=== PATIENT | male | born 1965 | race Caucasian/White ===

== ENCOUNTER 2017-11-04 11:51 | Inpatient (IN) ==
--- NOTE | 2017-11-04 13:03 | Emergency Department Note ---
Disposition Clinical Impression: Right leg swelling Cellulitis Qualifiers: Site of cellulitis: extremity Site of cellulitis of extremity: lower extremity Laterality: right Qualified Code(s): L03.115 - Cellulitis of right lower limb Disposition: Admitted As Inpatient Condition: Good Time of Disposition: 15:05 General Adult HPI - General Chief complaint: ED Extremity Problem,Nontraumatic Stated complaint: RLE problem Time Seen by Provider: 11/04/17 12:03 Source: patient Mode of arrival: ambulatory Limitations: other Nursing Notes Reviewed: Yes Vital Signs Reviewed: Yes - History of Present Illness HPI Narrative: Patient is a 52-year-old male that presents the emergency department for redness and swelling of the right lower extremity. Patient states that he was seen here in the emergency department on 10/25/17 for cellulitis and was given a antibiotic course of Keflex. Patient states that he finished this antibiotics approximately 2 days ago. He states that the redness and swelling had basically resolved. He states that today he noticed that his leg was swelling and red again. He also states that he noticed his right knee to be swollen. Patient denies any pain in his leg or knee. Patient states that he has had no difficulty with moving his leg. 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 Pain Scale: 0 - Related Data Home Medications Medication Instructions Recorded Confirmed Acetaminophen [Tylenol] 500 mg PO Q6HR PRN 02/03/15 11/04/17 Albuterol Sulfate [Proair HFA] 1 - 2 puff IH Q4H PRN 02/03/15 11/04/17 Docusate [Colace] 100 mg PO BID 02/03/15 11/04/17 Lisinopril [Zestril] 20 mg PO DAILY 02/03/15 11/04/17 Omeprazole [PriLOSEC] 40 mg PO DAILY 02/03/15 11/04/17 Wheat Dextrin [Benefiber] 1 packet PO DAILY 02/03/15 11/04/17 Diltiazem HCl [Diltiazem 24Hr Cd] 180 mg PO DAILY 02/10/15 11/04/17 Loratadine [Loradamed] 10 mg PO DAILY 02/10/15 11/04/17 Sodium Chloride/Sodium Bicarb 1 spray NS PRN PRN 02/10/15 11/04/17 [Nasa Mist Saline [place]] Perphenazine [Trilafon] 8 mg PO HS 05/21/15 11/04/17 Rivaroxaban [Xarelto] 20 mg PO DAILY 10/22/15 11/04/17 Aripiprazole [Abilify] 10 mg PO DAILY 04/29/16 11/04/17 clonazePAM [Klonopin] 1 mg PO HS 04/29/16 11/04/17 Atomoxetine HCl [Strattera] 80 mg PO QAM 11/04/17 11/04/17 Benztropine [Cogentin] 1 mg PO QAM 11/04/17 11/04/17 Linaclotide [Linzess] 145 mcg PO DAILY 11/04/17 11/04/17 traZODone [TraZODone] 50 mg PO HS 11/04/17 11/04/17 Allergies Allergy/AdvReac Type Severity Reaction Status Date / Time No Known Allergies Allergy Verified 11/04/17 11:58 All systems ED: reviewed and negative except as stated. Constitutional: Denies: fever, chills Cardiovascular: Denies: chest pain Respiratory: Denies: dyspnea Gastrointestinal: Denies: abdominal pain Integumentary: Reports: other (redness and swelling of right lower extremities) Past Medical History - Past Medical History Medical history: Reports: asthma, DVT, GERD, hyperlipidemia, hypertension Psychiatric history: Reports: bipolar, schizophrenia - Social History Smoking Status: Never smoker Smokeless Tobacco Status: No Alcohol use: Reports: none Drug use: Reports: none Physical Exam - General Limitations: no limitations, other General appearance: alert, in no apparent distress - Head Head exam: atraumatic, normocephalic - Eye Eye exam: Present: normal appearance, EOMI - Neck Neck exam: Present: normal inspection, full ROM, trachea midline - Respiratory Respiratory exam: Present: normal lung sounds bilaterally. Absent: respiratory distress, wheezes - Cardiovascular Cardiovascular exam: Present: regular rate, normal rhythm, normal heart sounds, +S1, +S2 - Abdominal Exam Abdominal exam: Present: soft, Non-Tender, normal bowel sounds - Extremities Exam Extremities exam: Present: full ROM, normal capillary refill, pedal edema, joint swelling (Right knee appears to be swollen and mildly erythematous.), other (Patient has swelling and erythema to the lower right extremity.). Absent : tenderness, calf tenderness - Neurological Exam Neurological exam: Present: alert, oriented X3 - Psychiatric Psychiatric exam: Present: normal affect, normal mood - Skin Skin exam: Present: warm, dry, intact Course Vital Signs Temperature 98.2 F 11/04/17 11:59 Pulse Rate 75 11/04/17 11:59 Respiratory Rate 20 11/04/17 11:59 Blood Pressure 132/84 11/04/17 11:59 O2 Sat by Pulse Oximetry 98 11/04/17 11:59 Temperature 97.5 F L 11/04/17 16:10 Pulse Rate 70 11/04/17 16:10 Respiratory Rate 20 11/04/17 16:10 Blood Pressure 143/93 11/04/17 16:10 O2 Sat by Pulse Oximetry 100 11/04/17 16:10 Oxygen Delivery Oxygen Delivery Room Air Medical Decision Making - MDM Narrative Medical decision making narrative: Due to the patient having a swollen right knee we will obtain x-rays of the knee. Due to the patient failing outpatient therapy with Keflex the patient may need to be admitted to the hospital for IV antibiotics and further evaluation and management. Basic laboratory testing will be obtained and the patient will be admitted to the hospital for further evaluation and management for IV antibiotics. The patient will be started on clindamycin here in the ED. laboratory testing was unremarkable. I called and spoke to the hospital and accept the patient to their service. Patient be admitted to the hospital for further evaluation and management. I did not feel that it was necessary to repeat the Doppler of the lower extremities due to the patient is having one approximately 10 days ago without any findings of blood clot. The patient is also currently being anticoagulated with Xarelto. - Medical Records Medical records reviewed: Yes I reviewed the patient's medical records. - Lab Data Lab results reviewed: Yes I reviewed the patient's lab results. Result diagrams: 11/04/17 13:45 11/04/17 13:45 Lab Results 11/04/17 11/04/17 Range/Units 13:45 13:45 WBC 6.7 (4.3-11.1) K/mcL RBC 4.59 (4.19-5.50) M/mcL Hgb 14.4 (12.9-16.9) g/dL Hct 42.6 (37.5-50.1) % MCV 92.8 (83.0-100.0) fL MCH 31.4 (28.0-33.3) pg MCHC 33.8 (31.6-35.5) g/dL RDW 13.1 (11.5-14.5) % Plt Count 278 (140-400) K/mcL MPV 11.2 (9.4-12.4) fL Immature Gran % 0.2 (0-4) % Seg Neutrophils % 62.8 % Lymphocytes % 26.0 % Monocytes % 8.6 % Eosinophils % 1.8 % Basophils % 0.6 % Neutrophils # 4.2 (1.6-8.9) K/mcL Lymphocytes # 1.7 (0.6-4.6) K/mcL Monocytes # 0.6 (0.0-1.3) K/mcL Eosinophils # 0.1 (0.0-0.6) K/mcL Basophils # 0.0 (0.0-0.2) K/mcL Sodium 139 (136-145) mEq/L Potassium 4.1 (3.5-5.1) mEq/L Chloride 105 (98-107) mEq/L Carbon Dioxide 28 (23-29) mEq/L BUN 8 (6-20) mg/dL Creatinine 0.87 (0.70-1.30) mg/dL Est GFR ( Amer) > 60 (> 60) Est GFR (Non-Af Amer) > 60 (> 60) BUN/Creatinine Ratio 9 (6-26) Glucose 103 (70-105) mg/dL Calculated Osmolality 287 (280-300) Calcium 9.0 (8.6-10.3) mg/dL - Radiology Data Radiology results reviewed: Yes I reviewed the patient's radiology results. Knee X-Ray 11/04/17 12:25 IMPRESSION: No acute osseous abnormality of the right knee. Moderate prepatellar soft tissue swelling. D/ / Morgan Chong MD / Morgan Chong MD Interpreting Provider: Morgan Chong MD
[2017-11-04] MEDS ORDERED: Clindamycin 600 MG/50 ML 600 MG/50 ML IV.SOLN IVPB ONE (13:56)
[2017-11-04 14:00] LABS: Basophils % 0.6 %; Eosinophils # 0.1 K/mcL (0.0-0.6); Eosinophils % 1.8 %; Hematocrit 42.6 % (37.5-50.1); Hemoglobin 14.4 g/dL (12.9-16.9); Immature Granulocytes % 0.2 % (0-4); Lymphocytes # 1.7 K/mcL (0.6-4.6); Mean Corpuscular HGB Conc 33.8 g/dL (31.6-35.5); Mean Corpuscular Hemoglobin 31.4 pg (28.0-33.3); Mean Corpuscular Volume 92.8 fL (83.0-100.0); Mean Platelet Volume 11.2 fL (9.4-12.4); Monocytes # 0.6 K/mcL (0.0-1.3); Monocytes % 8.6 %; Neutrophils # 4.2 K/mcL (1.6-8.9); Platelet Count 278 K/mcL (140-400); Red Blood Count 4.59 M/mcL (4.19-5.50); Red Cell Distribution Width 13.1 % (11.5-14.5); Segmented Neutrophils % 62.8 %
[2017-11-04 14:19] LABS: BUN/Creatinine Ratio 9 (6-26); Blood Urea Nitrogen 8 mg/dL (6-20); Carbon Dioxide 28 mEq/L (23-29); Chloride 105 mEq/L (98-107); Glucose 103 mg/dL (70-105); Osmolality,Calculated 287 (280-300); Potassium 4.1 mEq/L (3.5-5.1); Sodium 139 mEq/L (136-145); eGFR For African Americans > 60 (> 60); eGFR For Non-African Americans > 60 (> 60)
[2017-11-04] MEDS ORDERED: Naloxone 0.4 MG/ML INJ IVP PRN (15:51)
[2017-11-04] MEDS ORDERED: Vancomycin 0 MG in 0.9 % Sodium Chloride 250 ML IVPB SCH (16:00)
--- NOTE | 2017-11-04 16:08 | Internal Med History&Physical ---
<Izabella Carson R - Last Filed: 11/04/17 15:58> Date of Encounter: 11/04/17 Time of Encounter: 15:58 Internal Medicine - H&P: HPI Admitted From: Home Plans for Post Hospital Care: Home History of present illness: Mr. Martin is a 52 year old male the patient has hx of DVY to left leg X2 with IVC filter placement. He had recent cellulitis infection to the right leg after a fall and abrasion to the right knee mid October. The patient indicated that his leg began to swell and he had erythema. He came to the hospital on 10/25/17 and was treated with keflex which he completed 2 days ago. The patient has a caregiver, at home, that stated he noticed his leg was very reddened today with associated edema. He denied pain but the agency suggested that he bring him in for evaluation. The caregiver indicated that the knee was not every swollen or reddened the first visit. The knee xray showed moderate pre-pattellar soft tissue. The knee and leg is erythematous and edematous, posterior tibal and dorsalis pedis pulses 2+. Leg is warm. Will get a venous doppler study of the left leg today to rule out dvt. Will order or throat consult related to right knee joint swelling. The patient likely has cellulitis at this time. He has failed outpatient treatment but did not meet admission criteria. Ortho consulted and will see the patient in the morning, received order recommendations. Past Med Surg Social Fam HX - Past Medical History Medical history: asthma, DVT, GERD, hyperlipidemia, hypertension Psychiatric history: bipolar, schizophrenia - Social History Smoking Status: Never smoker Smokeless Tobacco Status: No Alcohol use: none Drug use: none Internal Medicine - H&P: Meds Acetaminophen [Tylenol] 500 mg PO Q6HR PRN 02/03/15 [History] Albuterol Sulfate [Proair HFA] 1 - 2 puff IH Q4H PRN 02/03/15 [History] Docusate [Colace] 100 mg PO BID 02/03/15 [History] Lisinopril [Zestril] 20 mg PO DAILY 02/03/15 [History] Omeprazole [PriLOSEC] 40 mg PO DAILY 02/03/15 [History] Wheat Dextrin [Benefiber] 1 packet PO DAILY 08/04/15 [History] Diltiazem HCl [Diltiazem 24Hr Cd] 180 mg PO DAILY 02/10/15 [History] Loratadine [Loradamed] 10 mg PO DAILY 02/10/15 [History] Sodium Chloride/Sodium Bicarb [Nasa Mist Saline [place]] 1 spray NS PRN PRN [History] Perphenazine [Trilafon] 8 mg PO HS 05/21/15 [History] Rivaroxaban [Xarelto] 20 mg PO DAILY 10/22/15 [History] Aripiprazole [Abilify] 10 mg PO DAILY 04/29/16 [History] clonazePAM [Klonopin] 1 mg PO HS 04/29/16 [History] Atomoxetine HCl [Strattera] 80 mg PO QAM 11/04/17 [History] Benztropine [Cogentin] 1 mg PO QAM 11/04/17 [History] Linaclotide [Linzess] 145 mcg PO DAILY 11/04/17 [History] traZODone [TraZODone] 50 mg PO HS 11/04/17 [History] 3 Allergy/AdvReac Type Severity Reaction Status Date / Time No Known Allergies Allergy Verified 11/04/17 11:58 All Systems PM: A 10-system review of systems was performed and is negative for pertinent findings except as documented above in the HPI. - Constitutional Constitutional: no chills, no fever(s), no night sweats - EENT Eyes: no change in vision, no discharge, no pain, no photophobia Ears: no ear discharge, no ear pain, no tinnitus Nose, mouth and throat: no dysphagia, no nasal discharge, no neck pain, no sore throat - Cardiovascular Cardiovascular ROS IM: no chest pain, no diaphoresis, no dyspnea, no lightheadedness, no palpitations, no syncope - Respiratory Respiratory: no cough, no dyspnea, no wheezing, no excessive phlegm production - Gastrointestinal Gastrointestinal: no abdominal pain, no diarrhea, no hematemesis, no hematochezia, no melena, no nausea, no vomiting - Musculoskeletal Musculoskeletal ROS IM: no numbness, no tingling - Integumentary Integumentary IM: erythema (Erythema and edema to right lower ext.), rash, no unusual bruising - Neurological Neurological ROS: no confusion, no convulsions, no focal weakness, no numbness, no tingling, no tremor(s) - Hematologic/Lymphatic Hematologic/Lymphatic: no easy bruising - Constitutional Vitals: Temp Pulse Resp BP Pulse Ox 98.4 F 73 18 136/88 98 11/04/17 15:32 11/04/17 14:11 11/04/17 15:32 11/04/17 15:32 11/04/17 14:11 General appearance: Present: A&O X 2 - Head Head exam: Present: atraumatic, normocephalic - Eye Eye exam: Present: PERRL, conjuntiva pink, sclera anicteric Pupils: Present: PERRL - Neck Neck exam general surgery: Present: supple, trachea midline. Absent: lymphadenopathy - Respiratory Respiratory exam: Present: CTAB. Absent: accessory muscle use, rales, rhonchi, wheezes - Cardiovascular Cardiovascular exam: Present: RRR, +S1, +S2. Absent: diastolic murmur, gallop, rubs, systolic murmur - GI/Abdominal GI/Abdominal exam: Present: normal bowel sounds, soft, no peritoneal signs. Absent: distended, tenderness - Extremities Exam Extremities exam: Present: joint swelling (Right knee), warm, radial pulses palpable and symmetrical. Absent: calf tenderness, cyanotic, pedal edema - Neurological Exam Neurological exam: Present: CN II-XII intact, oriented X3 (x2, disoriented to date), no focal deficits. Absent: pronater drift, facial droop, speech deficit - Skin Skin exam: Present: dry, erythema, intact, rash (Right lower extremity ), warm Internal Med - H&P Results - Labs CBC & Chem 7: 11/04/17 13:45 11/04/17 13:45 - Assessment and plan (1) Right leg swelling Current Visit: Yes Status: Acute Assessment and plan: Right knee and right leg edematous and with erythema is likely cellulitis. The patient denies pain and fever at home. Dorsalis pedis and posterior tibial pulses intact 2+. Right knee x-ray showed moderate prepatellar soft tissue. The patient indicated he fell on the knee about 4-5 weeks ago and had an abrasion. Failed outpatient treatment. Will start vancomycin IV to be dosed by pharmacy venous Doppler to the right lower extremity rule out DVT. Spoke with ortho and will add zosyn, crp, and esr. (2) DVT (deep venous thrombosis) Current Visit: No Status: Acute Assessment and plan: The patient has history of DVT in the left leg x2. The caregiver indicated there was a IVC filter placed in the left leg and the patient was also placed on Xarelto. The left leg without swelling or erythema. Denies pain. Will continue Xarelto per home dosing. Qualifiers: Chronicity: chronic Laterality: left Qualified Code(s): I82.502 - Chronic embolism and thrombosis of unspecified deep veins of left lower extremity (3) Cognitive developmental delay Current Visit: No Status: Chronic Assessment and plan: The patient has caregivers while at home, however they state it once hospitalized they do not accompany the patient. Patient was alert and oriented 2 and difficulty with the actual date. - Time Spent With Patient Total time spent is greater than 50% in coordination of care (as documented) at patient's floor/unit and/or counseling patient: <Christine Mustafa - Last Filed: 11/04/17 20:57> Date of Encounter: 11/04/17 Internal Medicine - H&P: HPI History of present illness: Mr. Martin is a 52 year old male Past Med Surg Social Fam HX - Family History Father History Unknown: Yes Living Status: Cause of : suicide. All Systems PM: A 10-system review of systems was performed and is negative for pertinent findings except as documented above in the HPI. - Constitutional Vitals: Temp Pulse Resp BP Pulse Ox 97.8 F 77 17 131/87 98 11/04/17 19:06 11/04/17 19:06 11/04/17 19:06 11/04/17 19:06 11/04/17 19:06 Internal Med - H&P Results - Labs CBC & Chem 7: 11/04/17 13:45 11/04/17 13:45 - Attending Attestation Examined the patient and reviewed the note. Agreed with the plan. Will keep patient under observation status. Failed outpatient therapy and recurrence of symptoms after stopping antibiotic. Patient has right knee swelling after mechanical fall therefore will consult orthopedician to rule out underlying joint involvement. Patient denies any fever with normal white count - Time Spent With Patient Total time spent is greater than 50% in coordination of care (as documented) at patient's floor/unit and/or counseling patient:
[2017-11-04] MEDS ORDERED: Piperacillin/Tazobactam 3.375 GM in 0.9 % Sodium Chloride Mini Bag 100 ML IVPB ONE (16:44)
--- NOTE | 2017-11-04 16:59 | Emergency Department Note ---
Disposition Clinical Impression: Right leg swelling Cellulitis Qualifiers: Site of cellulitis: extremity Site of cellulitis of extremity: lower extremity Laterality: right Qualified Code(s): L03.115 - Cellulitis of right lower limb Disposition: Admitted As Inpatient Condition: Good General Adult HPI - General Chief complaint: ED Extremity Problem,Nontraumatic Stated complaint: RLE problem Time Seen by Provider: 11/04/17 12:03 Source: patient Mode of arrival: ambulatory Limitations: no limitations, other - History of Present Illness Pain Scale: 0 - Related Data Home Medications Medication Instructions Recorded Confirmed Acetaminophen [Tylenol] 500 mg PO Q6HR PRN 02/03/15 11/04/17 Albuterol Sulfate [Proair HFA] 1 - 2 puff IH Q4H PRN 02/03/15 11/04/17 Docusate [Colace] 100 mg PO BID 02/03/15 11/04/17 Lisinopril [Zestril] 20 mg PO DAILY 02/03/15 11/04/17 Omeprazole [PriLOSEC] 40 mg PO DAILY 02/03/15 11/04/17 Wheat Dextrin [Benefiber] 1 packet PO DAILY 02/03/15 11/04/17 Diltiazem HCl [Diltiazem 24Hr Cd] 180 mg PO DAILY 02/10/15 11/04/17 Loratadine [Loradamed] 10 mg PO DAILY 02/10/15 11/04/17 Sodium Chloride/Sodium Bicarb 1 spray NS PRN PRN 02/10/15 11/04/17 [Nasa Mist Saline [place]] Perphenazine [Trilafon] 8 mg PO HS 05/21/15 11/04/17 Rivaroxaban [Xarelto] 20 mg PO DAILY 10/22/15 11/04/17 Aripiprazole [Abilify] 10 mg PO DAILY 04/29/16 11/04/17 clonazePAM [Klonopin] 1 mg PO HS 04/29/16 11/04/17 Atomoxetine HCl [Strattera] 80 mg PO QAM 11/04/17 11/04/17 Benztropine [Cogentin] 1 mg PO QAM 11/04/17 11/04/17 Linaclotide [Linzess] 145 mcg PO DAILY 11/04/17 11/04/17 traZODone [TraZODone] 50 mg PO HS 11/04/17 11/04/17 Allergies Allergy/AdvReac Type Severity Reaction Status Date / Time No Known Allergies Allergy Verified 11/04/17 11:58 Constitutional: Denies: fever, chills Cardiovascular: Denies: chest pain Respiratory: Denies: dyspnea Gastrointestinal: Denies: abdominal pain Integumentary: Reports: other (redness and swelling of right lower extremities) Past Medical History - Past Medical History Medical history: Reports: asthma, DVT, GERD, hyperlipidemia, hypertension Psychiatric history: Reports: bipolar, schizophrenia - Social History Smoking Status: Never smoker Smokeless Tobacco Status: No Alcohol use: Reports: none Drug use: Reports: none Physical Exam - General Limitations: no limitations, other General appearance: alert, in no apparent distress Course Vital Signs Temperature 98.2 F 11/04/17 11:59 Pulse Rate 75 11/04/17 11:59 Respiratory Rate 20 11/04/17 11:59 Blood Pressure 132/84 11/04/17 11:59 O2 Sat by Pulse Oximetry 98 11/04/17 11:59 Temperature 97.5 F L 11/04/17 16:10 Pulse Rate 70 11/04/17 16:10 Respiratory Rate 20 11/04/17 16:10 Blood Pressure 143/93 11/04/17 16:10 O2 Sat by Pulse Oximetry 100 11/04/17 16:10 Oxygen Delivery Oxygen Delivery Room Air Medical Decision Making - Lab Data Result diagrams: 11/04/17 13:45 11/04/17 13:45 Lab Results 11/04/17 11/04/17 11/04/17 Range/Units 13:45 13:45 13:45 WBC 6.7 (4.3-11.1) K/mcL RBC 4.59 (4.19-5.50) M/mcL Hgb 14.4 (12.9-16.9) g/dL Hct 42.6 (37.5-50.1) % MCV 92.8 (83.0-100.0) fL MCH 31.4 (28.0-33.3) pg MCHC 33.8 (31.6-35.5) g/dL RDW 13.1 (11.5-14.5) % Plt Count 278 (140-400) K/mcL MPV 11.2 (9.4-12.4) fL Immature Gran % 0.2 (0-4) % Seg Neutrophils % 62.8 % Lymphocytes % 26.0 % Monocytes % 8.6 % Eosinophils % 1.8 % Basophils % 0.6 % Neutrophils # 4.2 (1.6-8.9) K/mcL Lymphocytes # 1.7 (0.6-4.6) K/mcL Monocytes # 0.6 (0.0-1.3) K/mcL Eosinophils # 0.1 (0.0-0.6) K/mcL Basophils # 0.0 (0.0-0.2) K/mcL ESR 34 H (0-10) mm/hr Sodium 139 (136-145) mEq/L Potassium 4.1 (3.5-5.1) mEq/L Chloride 105 (98-107) mEq/L Carbon Dioxide 28 (23-29) mEq/L BUN 8 (6-20) mg/dL Creatinine 0.87 (0.70-1.30) mg/dL Est GFR ( Amer) > 60 (> 60) Est GFR (Non-Af Amer) > 60 (> 60) BUN/Creatinine Ratio 9 (6-26) Glucose 103 (70-105) mg/dL Calculated Osmolality 287 (280-300) Calcium 9.0 (8.6-10.3) mg/dL C-Reactive Protein < 5 (Less than 10) mg/L Attestation Statement - Attestation Attestation: I examined this patient and my medical decision-making was reviewed with the Resident Physician, Dr. Bond. I agree with the documented findings, disposition and treatment plan as described except to the extent set forth below. Patient is a 52-year-old white male who presents to the emergency department with recurrent right lower extremities swelling and redness to the skin that extends from just proximal to the ankle joints bilaterally proximally up the lower leg to just below the tibial tuberosity. Patient's been feeling chilled today, but no other associated symptoms. Patient denies any lower cavity pain cramping calf pain posterior knee pain. Patient states he finished Keflex approximately a week ago for similar cellulitis but at that time it was primarily located on the posterior aspect of his right lower leg and a small well circumscribed area. Patient completed antibiotics as directed but has had a recurrence of these symptoms. Patient with no prior episode of MRSA, skin infections. Patient has no evidence of abscess skin breakdown excoriation or area of introduction to the skin. Patient reports that before the initial episode of cellulitis he had a mechanical fall in which she landed onto his right knee. He still has a healing abrasion to the right anterior knee from this and a small prepatellar effusion but there is no overlying erythema warmth to the joint. The entire right lower extremity is swollen. When patient was evaluated for the initial cellulitis he did have a right lower extremity Doppler performed which was negative for DVT. Patient's in no acute distress and vital signs are stable. I agree with patient's physical exam findings as documented. Patient had an IV initiated, labs were drawn and sent and patient was started on clindamycin IV. Patient's labs overall are unremarkable. Local head admit the patient for right lower extremity cellulitis which is failed outpatient management. Case was discussed with hospitalist, patient's hemodynamically stable and accepted for admission.
[2017-11-04 17:10] LABS: C-Reactive Protein < 5 mg/L (Less than 10)
[2017-11-04] MEDS: 0.9 % Sodium Chloride 1,000 ML IVC SCH (17:26)
[2017-11-04] MEDS: clonazePAM 1 MG TABLET PO SCH (21:26)
[2017-11-04] MEDS: traZODone 50 MG TABLET PO SCH (21:26)
[2017-11-04] MEDS: SODIUM CHLORIDE NS SCH (21:27)
[2017-11-04] MEDS: SODIUM BICARB NS SCH (21:27)
[2017-11-05] MEDS: Piperacillin/Tazobactam 3.375 GM in 0.9 % Sodium Chloride Mini Bag 100 ML IVPB SCH ×3 (00:05→15:42)
[2017-11-05] MEDS: 0.9 % Sodium Chloride 1,000 ML IVC SCH (04:54)
[2017-11-05 07:33] LABS: Basophils # 0.1 K/mcL (0.0-0.2); Basophils % 0.8 %; Eosinophils # 0.2 K/mcL (0.0-0.6); Eosinophils % 3.2 %; Hematocrit 36.4 % (37.5-50.1); Immature Granulocytes % 0.3 % (0-4); Lymphocytes # 1.9 K/mcL (0.6-4.6); Lymphocytes % 29.9 %; Mean Corpuscular HGB Conc 33.5 g/dL (31.6-35.5); Mean Corpuscular Hemoglobin 30.9 pg (28.0-33.3); Mean Corpuscular Volume 92.2 fL (83.0-100.0); Mean Platelet Volume 11.8 fL (9.4-12.4); Monocytes # 0.7 K/mcL (0.0-1.3); Monocytes % 11.1 %; Neutrophils # 3.4 K/mcL (1.6-8.9); Platelet Count 256 K/mcL (140-400); Red Blood Count 3.95 M/mcL (4.19-5.50); Red Cell Distribution Width 13.4 % (11.5-14.5); Segmented Neutrophils % 54.7 %
[2017-11-05 07:35] LABS: Hemoglobin 12.2 g/dL (12.9-16.9)
[2017-11-05 07:57] LABS: BUN/Creatinine Ratio 10 (6-26); Blood Urea Nitrogen 9 mg/dL (6-20); Calcium 8.1 mg/dL (8.6-10.3); Carbon Dioxide 27 mEq/L (23-29); Chloride 109 mEq/L (98-107); Glucose 98 mg/dL (70-105); Osmolality,Calculated 289 (280-300); Potassium 4.2 mEq/L (3.5-5.1); Sodium 140 mEq/L (136-145); eGFR For African Americans > 60 (> 60); eGFR For Non-African Americans > 60 (> 60)
--- NOTE | 2017-11-05 08:15 | Orthopedic Consult Note ---
Date of Encounter: 11/05/17 Time of Encounter: 08:13 Assessment and Plan (1) Prepatellar bursitis of right knee Current Visit: Yes Status: Acute I did discuss the diagnosis in detail with the patient. He has a mild prepatellar bursitis, likely septic however it has significantly improved. His CRP is normal. His white count is normal. My recommendation is for oral antibiotics. Recommended antibiotic with a broad-spectrum as the Keflex did not work. He is orthopedically stable for discharge. Follow-up with me in 1 week for a clinical reevaluation or sooner if needed. Activities as tolerated without orthopedic restriction. History of Present Illness HPI: Mr. Martin is a 52 year old male admitted to the hospitalist with prepatellar bursitis. The patient said he had a fall back in October and scraped his knee. He presented to the hospital where the prepatellar bursitis was identified and is given a prescription for Keflex which she completed. Due to persistent swelling and redness he re-presented to the hospital and was admitted to the hospitalist and placed on IV antibiotics. On my evaluation today the patient complains of no pain related to the right knee. No associated numbness, tingling, or other signs or symptoms. There are no modifying factors. Past Med Surg Social Fam HX - Past Medical History Medical history: asthma, DVT, GERD, hyperlipidemia, hypertension Psychiatric history: bipolar, schizophrenia - Social History Smoking Status: Never smoker Smokeless Tobacco Status: No Alcohol use: none Drug use: none - Family History Father History Unknown: Yes Living Status: Cause of : suicide. Medications and Allergies Acetaminophen [Tylenol] 500 mg PO Q6HR PRN 02/03/15 [History] Albuterol Sulfate [Proair HFA] 1 - 2 puff IH Q4H PRN 02/03/15 [History] Docusate [Colace] 100 mg PO BID 02/03/15 [History] Lisinopril [Zestril] 20 mg PO DAILY 02/03/15 [History] Omeprazole [PriLOSEC] 40 mg PO DAILY 02/03/15 [History] Wheat Dextrin [Benefiber] 1 packet PO DAILY 02/03/15 [History] Diltiazem HCl [Diltiazem 24Hr Cd] 180 mg PO DAILY 02/10/15 [History] Loratadine [Loradamed] 10 mg PO DAILY 02/10/15 [History] Sodium Chloride/Sodium Bicarb [Nasa Mist Saline [place]] 1 spray NS PRN PRN [History] Perphenazine [Trilafon] 8 mg PO HS 05/21/15 [History] Rivaroxaban [Xarelto] 20 mg PO DAILY 10/22/15 [History] Aripiprazole [Abilify] 10 mg PO DAILY 04/29/16 [History] clonazePAM [Klonopin] 1 mg PO HS 04/29/16 [History] Atomoxetine HCl [Strattera] 80 mg PO QAM 11/04/17 [History] Benztropine [Cogentin] 1 mg PO QAM 11/04/17 [History] Linaclotide [Linzess] 145 mcg PO DAILY 11/04/17 [History] traZODone [TraZODone] 50 mg PO HS 11/04/17 [History] 3 Allergy/AdvReac Type Severity Reaction Status Date / Time No Known Allergies Allergy Verified 11/04/17 11:58 All Systems Reviewed: The remainder of the systems were reviewed and are negative Physical Exam - Constitutional Vitals: Temp Pulse Resp BP Pulse Ox 97.7 F 65 16 133/84 99 11/05/17 08:00 11/05/17 08:00 11/05/17 08:00 11/05/17 08:00 11/05/17 08:00 CONSTITUTIONAL -Vitals reviewed -The patient is well developed, well nourished, well groomed PSYCHIATRIC -Fully alert and oriented -Pleasant mood RIGHT LOWER EXTREMITY Inspection shows there is a mild prepatellar bursitis No significant erythema No tenderness to palpation throughout I can gently passively range the knee without pain. He can grossly flex to extend the ankle and toes The foot is sensate and well-perfused Results - Labs Result Diagrams: 11/05/17 05:50 11/05/17 05:50 Labs: Abnormal lab results RBC 3.95 M/mcL (4.19-5.50) L 11/05/17 05:50 Hgb 12.2 g/dL (12.9-16.9) L D 11/05/17 05:50 Hct 36.4 % (37.5-50.1) L 11/05/17 05:50 ESR 34 mm/hr (0-10) H 11/04/17 13:45 Chloride 109 mEq/L (98-107) H 11/05/17 05:50 Calcium 8.1 mg/dL (8.6-10.3) L 11/05/17 05:50 H & H 11/05/17 Range/Units 05:50 Hgb 12.2 L D (12.9-16.9) g/dL Hct 36.4 L (37.5-50.1) % All other labs normal. Consult Discharge Plan - Plan Referrals: Rob Castillo MD [Primary Care Provider] -
[2017-11-05] MEDS: Loratadine 10 MG TABLET PO SCH (08:34)
[2017-11-05] MEDS: *HR* Rivaroxaban 10 MG TABLET PO SCH (08:34)
[2017-11-05] MEDS: Diltiazem CD (24hr) 180 MG CAPSULE PO SCH (08:34)
[2017-11-05] MEDS: ARIPiprazole 10 MG TABLET PO SCH (08:34)
[2017-11-05] MEDS: WHEAT DEXTRIN PO SCH (08:35)
[2017-11-05] MEDS: (Linaclotide [Linzess] 145 MCG) PO SCH (08:35)
--- NOTE | 2017-11-05 10:15 | Internal Med Progress Note ---
Date of Encounter: 11/05/17 Time of Encounter: 10:15 - Assessment and plan (1) Cellulitis Current Visit: Yes Status: Acute Assessment and plan: Failed outpatient treatment. Currently on IV ax with improvement slowly. Will d/c Zosyn and continue IV Vanc tonight. If continues to improve plan d/c tomorrow. Qualifiers: Site of cellulitis: extremity Site of cellulitis of extremity: lower extremity Laterality: right Qualified Code(s): L03.115 - Cellulitis of right lower limb (2) Prepatellar bursitis of right knee Current Visit: Yes Status: Acute Assessment and plan: Abx as above. (3) Cognitive developmental delay Current Visit: No Status: Chronic - Time Spent With Patient Total time spent is greater than 50% in coordination of care (as documented) at patient's floor/unit and/or counseling patient: - Subjective Interval history: Mr Martin is currently admitted for prepatellar infection. He remains moderate to high risk due to potential for worsening clinical status. Mr Martin feels OK. He still has redness on his knee and down leg. No fever. No GI issues. He thinks things have been improving with IV abx. - Constitutional Vitals: Temp Pulse Resp BP Pulse Ox 97.7 F 65 16 133/84 99 11/05/17 08:00 11/05/17 08:00 11/05/17 08:00 11/05/17 08:00 11/05/17 08:00 General appearance: Present: A&O X 2 - Head Head exam: Present: normocephalic - Eye Eye exam: Present: conjuntiva pink - ENT ENT exam: Present: mucous membranes moist - Respiratory Respiratory exam: Present: CTAB. Absent: rales, rhonchi, wheezes - Cardiovascular Cardiovascular exam: Present: RRR. Absent: tachycardia - GI/Abdominal GI/Abdominal exam: Present: soft. Absent: tenderness - Extremities Exam Extremities exam: Present: warm Additional comments: RLE with some erythema near ankle and patella. - Neurological Exam Neurological exam: Present: alert - Skin Skin exam: Present: erythema, warm Internal Medicine: Result - Labs CBC & Chem 7: 11/05/17 05:50 11/05/17 05:50 Labs: Short CBC 11/05/17 Range/Units 05:50 WBC 6.2 (4.3-11.1) K/mcL Hgb 12.2 L D (12.9-16.9) g/dL Hct 36.4 L (37.5-50.1) % Plt Count 256 (140-400) K/mcL Neutrophils # 3.4 (1.6-8.9) K/mcL BMP 11/05/17 05:50 Sodium 140 Potassium 4.2 Chloride 109 H Carbon Dioxide 27 BUN 9 Creatinine 0.91 Glucose 98 Calcium 8.1 L Consult Discharge Plan - Plan Referrals: Rob Castillo MD [Primary Care Provider] -
[2017-11-05] MEDS: SODIUM CHLORIDE NS SCH (15:43)
[2017-11-05] MEDS: SODIUM BICARB NS SCH (15:43)
[2017-11-05] MEDS: clonazePAM 1 MG TABLET PO SCH (19:54)
[2017-11-05] MEDS: traZODone 50 MG TABLET PO SCH (19:54)
[2017-11-06 05:26] LABS: Basophils # 0.1 K/mcL (0.0-0.2); Basophils % 0.8 %; Eosinophils # 0.3 K/mcL (0.0-0.6); Eosinophils % 3.3 %; Hematocrit 38.4 % (37.5-50.1); Hemoglobin 12.9 g/dL (12.9-16.9); Immature Granulocytes % 0.5 % (0-4); Lymphocytes # 2.5 K/mcL (0.6-4.6); Lymphocytes % 31.3 %; Mean Corpuscular HGB Conc 33.6 g/dL (31.6-35.5); Mean Corpuscular Hemoglobin 30.8 pg (28.0-33.3); Mean Corpuscular Volume 91.6 fL (83.0-100.0); Mean Platelet Volume 11.5 fL (9.4-12.4); Monocytes # 0.9 K/mcL (0.0-1.3); Monocytes % 10.8 %; Neutrophils # 4.2 K/mcL (1.6-8.9); Platelet Count 281 K/mcL (140-400); Red Blood Count 4.19 M/mcL (4.19-5.50); Red Cell Distribution Width 13.4 % (11.5-14.5); Segmented Neutrophils % 53.3 %
[2017-11-06 05:49] LABS: BUN/Creatinine Ratio 13 (6-26); Blood Urea Nitrogen 11 mg/dL (6-20); Calcium 8.6 mg/dL (8.6-10.3); Carbon Dioxide 26 mEq/L (23-29); Chloride 105 mEq/L (98-107); Glucose 97 mg/dL (70-105); Osmolality,Calculated 285 (280-300); Potassium 4.1 mEq/L (3.5-5.1); Sodium 138 mEq/L (136-145); eGFR For African Americans > 60 (> 60); eGFR For Non-African Americans > 60 (> 60)
[2017-11-06 07:33] VITALS: BP 128/88
--- NOTE | 2017-11-06 09:49 | Discharge Summary ---
- NOTES TO OUTPATIENT PROVIDER Notes to Outpatient Provider: Admitted with suprapatellar bursitis. Has improved with IV abx. Will complete course of PO. Date of Encounter: 11/06/17 Time of Encounter: 09:15 - Discharge Diagnosis (1) Cellulitis Priority: Primary Status: Acute Assessment and Plan: Change to PO doxy. D/C today. Qualifiers: Site of cellulitis: extremity Site of cellulitis of extremity: lower extremity Laterality: right Qualified Code(s): L03.115 - Cellulitis of right lower limb (2) Prepatellar bursitis of right knee Priority: Primary Status: Acute Assessment and Plan: Abx as above. (3) Cognitive developmental delay Priority: Secondary Status: Chronic (4) HTN (hypertension) Priority: Secondary Status: Chronic Qualifiers: Hypertension type: essential hypertension Qualified Code(s): I10 - Essential (primary) hypertension (5) Chronic GERD Priority: Secondary Status: Chronic Hospital course: Mr. Martin is a 52 year old male with hx of asthma, DVT and HTN presented to ED with swelling and redness of RLE and knee. He had fallen and had been seen in the outpatient ED and placed on Keflex. The area worsened and he came back to ED. He was admitted for further evaluation and treatment. Mr Martin was admitted and placed on IV abx. Duplex negative for DVT. He was seen by orthopedics due to concern for septic joint and was felt to have prepatellar septic bursitis. He was continued on IV Vancomycin. Zosyn was discontinued on 11/05. Today he is doing OK. The redness is still present but much improved. He is currently afebrile. He is ready for discharge home on PO abx (sent to pharmacy) . He is to follow up with Dr. Anand in a week. Discharge discussed with: patient, nurse - Time Spent with Patient Total time spent providing and/or coordinating discharge services: 39min - Discharge Medications Prescriptions: Doxycycline 100 mg PO BID #15 capsule Home Medications: Acetaminophen [Tylenol] 500 mg PO Q6HR PRN 02/03/15 [History] Albuterol Sulfate [Albuterol Inhaler] 1 - 2 puff IH Q4H PRN 02/03/15 [History] Docusate [Colace] 100 mg PO BID 02/03/15 [History] Lisinopril [Zestril] 20 mg PO DAILY 02/03/15 [History] Omeprazole [PriLOSEC] 40 mg PO DAILY 02/03/15 [History] Wheat Dextrin [Benefiber] 1 packet PO DAILY 02/03/15 [History] Diltiazem HCl [Diltiazem 24Hr Cd] 180 mg PO DAILY 02/10/15 [History] Loratadine [Loradamed] 10 mg PO DAILY 02/10/15 [History] Sodium Chloride/Sodium Bicarb [Nasa Mist Saline [place]] 1 spray NS PRN PRN [History] Perphenazine [Trilafon] 8 mg PO HS 05/21/15 [History] Rivaroxaban [Xarelto] 20 mg PO DAILY 10/22/15 [History] Aripiprazole [Abilify] 10 mg PO DAILY 04/29/16 [History] clonazePAM [Klonopin] 1 mg PO HS 04/29/16 [History] Atomoxetine HCl [Strattera] 80 mg PO QAM 11/04/17 [History] Benztropine [Cogentin] 1 mg PO QAM 11/04/17 [History] Linaclotide [Linzess] 145 mcg PO DAILY 11/04/17 [History] traZODone [TraZODone] 50 mg PO HS 11/04/17 [History] Doxycycline 100 mg PO BID #15 capsule 11/06/17 [Rx] Allergies/Adverse Reactions: 3 Allergy/AdvReac Type Severity Reaction Status Date / Time No Known Allergies Allergy Verified 11/04/17 11:58 Date of admission: 11/05/17 15:46 Primary care physician: Rob Castillo MD Consults: [facility] Discharging clinician: Shar Mcarthur Anticipated date of discharge: 11/06/17 - Constitutional Vitals: Temp Pulse Resp BP Pulse Ox 97.9 F 85 20 128/88 98 11/06/17 07:32 11/06/17 07:32 11/06/17 07:32 11/06/17 07:32 11/06/17 07:32 General appearance: Present: A&O X 2, answers questions appropriately - Head Head exam: Present: normocephalic - Eye Eye exam: Present: conjuntiva pink - ENT ENT exam: Present: mucous membranes dry - Respiratory Respiratory exam: Present: CTAB. Absent: rales, rhonchi, wheezes - Cardiovascular Cardiovascular exam: Present: RRR. Absent: tachycardia - GI/Abdominal GI/Abdominal exam: Present: soft. Absent: tenderness - Extremities Exam Extremities exam: Present: warm Additional comments: RLE with improved erythema. Some residual faint erythema to suprapatellar region. Nontender. - Neurological Exam Neurological exam: Present: alert - Skin Skin exam: Present: dry, warm - Patient Status Disposition: Home, Self-Care Condition: Good Functional capacity at discharge: independent ambulation Overall status at discharge: patient is progressing back to baseline - Discharge Instructions Follow Up With: Rob Castillo MD [Primary Care Provider] - 11/14/17 10:15 am Aram Anand MD [Partnered Physician] - (Follow up in 1 week.) - Diet and Activity Activity: increase activity as tolerated Diet: advance to your usual diet
[2017-11-06] MEDS ORDERED: Doxycycline 100 MG CAPSULE PO SCH (10:00)
[2017-11-06] MEDS: ARIPiprazole 10 MG TABLET PO SCH (10:25)
[2017-11-06] MEDS: Diltiazem CD (24hr) 180 MG CAPSULE PO SCH (10:25)
[2017-11-06] MEDS: (Linaclotide [Linzess] 145 MCG) PO SCH (10:26)
[2017-11-06] MEDS: *HR* Rivaroxaban 10 MG TABLET PO SCH (10:26)
[2017-11-06] MEDS: WHEAT DEXTRIN PO SCH (10:26)
[2017-11-06] MEDS: Loratadine 10 MG TABLET PO SCH (10:26)
[2017-11-06] MEDS ORDERED: Aminoglycoside Consult 1 EACH MC ONE (12:17)
== END 2017-11-06 12:18 | disposition home or self-care (01) | DRG 603 ==
LOC: 3BNU 11:51 → EMEROO 11:51 → SUATTDRO 15:16 → 3BNU 15:52
PROVIDERS: ADMIT Nurse Practitioner; ATTEND Internal Medicine